=== PATIENT | female | born 2000 | race African-American/Black ===

== ENCOUNTER 2024-01-01 07:11 | Day surgery (SDC) | payer OTHER ==
[~2024-01-01] VITALS: Ht 170.2 cm; Wt 59.3 kg
[~2024-01-01 07:11] MED LIST: ACETAMINOPHEN 1000MG 100ML IV BAG As Ordered ONE; DOCU100C16 PO; IBUP1TAB7 PO; KETOROLAC 60MG 2ML VIAL As Ordered ONE; LIDOCAINE 2% 100MG/5ML SDV (FOR ANES.) As Ordered ONE; MULTTAB20 PO; ONDA4TAB6 PO; ONDANSETRON 4MG 2ML VIAL As Ordered ONE; ROCURONIUM BROMIDE 50MG/5ML VIAL As Ordered ONE; VALT500T PO; propofoL 200 MG/20 ML VIAL As Ordered ONE
[2024-01-01] MEDS ORDERED: MIDAZOLAM INJ 2MG/2ML VIAL As Ordered ONE (07:12)
[2024-01-01] MEDS ORDERED: fentaNYL 100 MCG/2 ML INJECTION As Ordered ONE (07:12)
[2024-01-01] MEDS ORDERED: LR 1,000 ML IV SCH (07:30)
[2024-01-01 07:54] LABS: HEMATOCRIT 36.1 % (36.0-47.0); MEAN CORPUSCULAR HEMOGLOBIN 23.9 pg (27.0-33.0); MEAN CORPUSCULAR HGB CONC 30.5 g/dl (32.0-36.5); MEAN CORPUSCULAR VOLUME 78.5 fl (80.0-96.0); PLATELET COUNT, AUTOMATED 183 10^3/uL (150-450); WHITE BLOOD COUNT 3.7 10^3/uL (4.0-10.0)
[2024-01-01] MEDS: LR 1,000 ML IV SCH (08:36)
[2024-01-01] MEDS: DOXYCYCLINE HYCLATE 100MG TABLET PO ONE (08:51)
[2024-01-01] MEDS: ONDANSETRON 4MG 2ML VIAL IV ONE (08:52)
[2024-01-01] MEDS ORDERED: SCOPOLAMINE 1MG TRANSDERMAL PATCH As Ordered ONE (09:02)
[2024-01-01] MEDS ORDERED: SILVER NITRATE APPLICATOR (1 = QTY 10) As Ordered ONE (09:08)
[2024-01-01] MEDS: LIDOCAINE 1% SDV 30ML VIAL As Ordered ONE (09:08)
[2024-01-01] MEDS: METHYLENE BLUE 0.5% (5MG/ML) 10 ML AMP (PROVAYBLUE) As Ordered ONE (09:10)
[2024-01-01] MEDS ORDERED: oxyCODONE 5MG TAB PO PRN (11:15)
[2024-01-01] MEDS ORDERED: MORPHINE 2 MG/ML 1ML VIAL IV PRN (11:15)
[2024-01-01] MEDS ORDERED: fentaNYL 100 MCG/2 ML INJECTION IV PRN (11:15)
[2024-01-01] MEDS ORDERED: ONDANSETRON 4MG 2ML VIAL IV PRN (11:15)
[2024-01-01 12:50] VITALS: BP 130/70; TEMP 97.4; O2SAT 100
== END 2024-01-01 12:55 | disposition home or self-care (01) ==
LOC: M SDC 07:11
PROVIDERS: ATTEND Obstetrics & Gynecology
DX: N97.9 Female infertility, unspecified (principal); N73.6 Female pelvic peritoneal adhesions (postinfective); Z88.0 Allergy status to penicillin
CPT/HCPCS: 36415; 58350; 58558; 58660; 81025; 85027; 86850; 86900; 86901; 88305; G0123; J0131; J0665; J1100; J1885; J2250; J2405; J3010; Q9968

== ENCOUNTER 2024-02-08 14:24 | Emergency (ER) | payer OTHER ==
[~2024-02-08] VITALS: Ht 170.2 cm; Wt 59.9 kg
[~2024-02-08 14:24] MED LIST changes: -ACETAMINOPHEN 1000MG 100ML IV BAG As Ordered ONE; -KETOROLAC 60MG 2ML VIAL As Ordered ONE; -LIDOCAINE 2% 100MG/5ML SDV (FOR ANES.) As Ordered ONE; +ONDA-282 PO; -ONDA4TAB6 PO; -ONDANSETRON 4MG 2ML VIAL As Ordered ONE; -ROCURONIUM BROMIDE 50MG/5ML VIAL As Ordered ONE; -propofoL 200 MG/20 ML VIAL As Ordered ONE
[2024-02-08] MEDS: ACETAMINOPHEN 500 MG TAB PO ONE (16:55)
[2024-02-08] MEDS: LIDOCAINE 5% (LIDODERM) PATCH TD ONE (16:55)
[2024-02-08 18:54] VITALS: BP 112/68; TEMP 98; O2SAT 100
[2024-02-08] MEDS ORDERED: ANEC4CRE3 TOP (18:54)
== END 2024-02-08 19:02 | disposition home or self-care (01) ==
LOC: M ED 14:24
DX: M25.561 Pain in right knee (principal); M54.6 Pain in thoracic spine; W10.8XXA Fall (on) (from) other stairs and steps, initial encounter; Y92.009 Unspecified place in unspecified non-institutional (private) residence as the place of occurrence of the external cause; Y93.9 Activity, unspecified; Y99.9 Unspecified external cause status; Z79.899 Other long term (current) drug therapy; Z88.0 Allergy status to penicillin

== ENCOUNTER 2024-07-13 02:07 | Emergency (ER) | payer OTHER ==
[~2024-07-13] VITALS: Ht 167.6 cm; Wt 57.0 kg
[~2024-07-13 02:07] MED LIST changes: +ANEC4CRE3 TOP
[2024-07-13 02:10] VITALS: TEMP 97.3
[2024-07-13 02:48] LABS: APPEARANCE, URINE CLOUDY (CLEAR); BACTERIA, URINE AUTO 2+ (NEGATIVE); BILIRUBIN, URINE AUTO NEGATIVE (NEGATIVE); BLOOD, URINE BLOOD 3+ (NEGATIVE); COLOR, URINE YELLOW (YELLOW); GLUCOSE, URINE (UA) AUTO NEGATIVE (NEGATIVE); KETONE, URINE AUTO NEGATIVE (NEGATIVE); LEUKOCYTE ESTERASE, URINE AUTO 2+ (NEGATIVE); MUCUS, URINE SMALL (NEGATIVE); NITRITE, URINE AUTO NEGATIVE (NEGATIVE); PROTEIN, URINE AUTO NEGATIVE (NEGATIVE); RBC, URINE AUTO 3 /HPF (0-3); SPECIFIC GRAVITY URINE AUTO 1.026 (1.002-1.035); SQUAMOUS EPITHELIAL CELL UR AU 4 /HPF (0-6); UROBILINOGEN, URINE AUTO 0.2 mg/dL (0.0-2.0); WBC, URINE AUTO 7 /HPF (0-3)
[2024-07-13 03:30] VITALS: BP 135/74
[2024-07-13 03:37] VITALS: O2SAT 100
== END 2024-07-13 03:46 | disposition home or self-care (01) ==
LOC: M ED 02:07
DX: N93.9 Abnormal uterine and vaginal bleeding, unspecified (principal); N80.9 Endometriosis, unspecified; Z79.899 Other long term (current) drug therapy; Z88.0 Allergy status to penicillin